=== PATIENT | male | born 1985 | race Caucasian/White ===

== ENCOUNTER 2018-05-18 20:35 | Emergency (ER) | payer BC ==
[~2018-05-18] VITALS: Ht 177.8 cm; Wt 99.8 kg
[~2018-05-18 20:35] MED LIST: CEPH500 PO; CODACE30 PO; CRUTCH3 USE; ESOM20 PO; Flomax0.4 MG PO; IBUP800 PO; KETO10 PO; Norco 5-325 Ta1 EACH PO; ONDA4ODT MM; OXYACE5T PO; POLTRIOPSO OS; RXCODACET PO; RXHYDACE PO; RXOXYACE PO; RXSULTRIDS PO; SULTRIDS PO; TAMS.4ER PO; VICODIN 5-3001 EACH; [UNRECOGNIZED DRUG - REMARK]
[2018-05-18] MEDS ORDERED: IBUP800 PO (21:19)
== END 2018-05-18 21:24 | disposition home or self-care (01) ==
LOC: ER 20:35
DX: S93.402A Sprain of unspecified ligament of left ankle, initial encounter (principal); F17.200 Nicotine dependence, unspecified, uncomplicated; Z88.6 Allergy status to analgesic agent; W10.9XXA Fall (on) (from) unspecified stairs and steps, initial encounter
CPT/HCPCS: 29515; 73610; 99283-25

== ENCOUNTER → 2021-01-25 | Outpatient (CLI) | payer BC ==
[2021-01-25 19:51] LABS: Bilirubin, Urine Neg (Neg); Blood, Urine Neg (Neg); Glucose Qualitative, Urine Neg (Neg); Ketones, Urine Neg (Neg); Leukocyte Esterase, Urine 1+ (Neg); Nitrite, Urine Neg (Neg); Protein, Urine Neg (Neg); Urobilinogen, Urine NORM (Normal)
[2021-01-25 20:00] LABS: Appearance, Urine Clear (Clear); Color, Urine Yellow (P-Yellow)
[2021-01-25 20:03] LABS: Bacteria Rare /hpf; Mucus Light (0-Heavy); Red Blood Cells, Urine 0-2 /hpf (0-2); Squamous Epithelial Cells Not Seen /hpf (Few); White Blood Cells, Urine 0-2 /hpf (0-5)
== END | disposition home or self-care (01) ==
LOC: LAB SHORT 17:48
PROVIDERS: Registered Nurse
DX: R30.0 Dysuria (principal)
CPT/HCPCS: 81001

== ENCOUNTER 2025-03-14 21:33 | Emergency (ER) | payer OTHER ==
[~2025-03-14] VITALS: Ht 180.3 cm; Wt 97.5 kg
[2025-03-14 22:11] VITALS: BP 200/100
== END 2025-03-14 23:47 | disposition home or self-care (01) ==
LOC: ER 21:33
DX: K08.89 Other specified disorders of teeth and supporting structures (principal); Z88.5 Allergy status to narcotic agent; Z88.8 Allergy status to other drugs, medicaments and biological substances
CPT/HCPCS: 64400; 99282-25